=== PATIENT | female | born 2000 | race Caucasian/White ===

== ENCOUNTER 2024-10-15 19:49 | Emergency (ER) | payer SELFPAY ==
[2024-10-15] MEDS: Cyclobenzaprine 10 MG Tab PO ONE (21:56)
== END 2024-10-15 22:08 | disposition home or self-care (01) ==
LOC: MW.ED 19:49
DX: M54.50 Low back pain, unspecified (principal); M25.551 Pain in right hip; M25.552 Pain in left hip; Z75.3 Unavailability and inaccessibility of health-care facilities; V89.2XXA Person injured in unspecified motor-vehicle accident, traffic, initial encounter
CPT/HCPCS: 72131; 72131-26; 73030-26-LT; 73030-LT; 99283; 99284; A9270-GY